=== PATIENT | male | born 1980 | race African-American/Black ===

== ENCOUNTER 2017-06-08 15:12 | Emergency (ER) | payer OTHER ==
[~2017-06-08] VITALS: Ht 170.2 cm; Wt 112.5 kg
[~2017-06-08 15:12] MED LIST: ALBUTEROL0.09 MG/A1 INH; AMLODIPINE10 MG PO; AMOXIL 875 MG875 MG PO; FLEXERIL10 MG PO; HYDROCODONE/ACE1 TA1 PO; HYDRODIURIL 112.5 M1 PO; IBUPROFEN600 M1 PO; MOBIC15 M1 PO; PERCOCET 10-321 EACH PO; PERCOCET 5-3251 EACH PO; PREDNISONE 20MG20 MG PO; PREDNISONE20 M1 PO; TESSALON PERLE100 MG PO; ULTRAM50 M1 PO
[2017-06-08 16:51] LABS: ABSOLUTE BASOPHIL COUNT 0 /CUMM (0.0-0.2); ABSOLUTE EOSINOPHIL COUNT 0 /CUMM (0.0-0.7); ABSOLUTE GRANULOCYTE CT 8.7 /CUMM (1.4-6.5); ABSOLUTE LYMPH COUNT 1.3 /CUMM (1.2-3.4); ABSOLUTE MONOCYTE COUNT 0.4 /CUMM (0.10-0.60); BASOPHIL % 0.4 % (0.0-2.0); EOSINOPHIL % 0.3 % (0-5); HEMATOCRIT 42.7 % (42-52); MEAN CORPUSCULAR HGB 28.5 PG (27.0-31.0); MEAN CORPUSCULAR VOLUME 83.9 FL (80.0-94.0); MEAN PLATELET VOLUME 7.6 FL (7.4-10.4); PLATELET COUNT 338 /CUMM (130-400); RED BLOOD CELL CT 5.08 /CUMM (4.70-6.10); WHITE BLOOD CELL COUNT 10.4 /CUMM (4.8-10.8)
[2017-06-08 16:52] LABS: GRANULOCYTE % 83.1 % (42.2-75.2)
--- NOTE | 2017-06-08 17:08 | ED GI/GU/ABDOMINAL COMPLAINT ---
History of Present Illness General Chief Complaint: Abdominal Pain/Flank Pain Stated Complaint: ABDOMINAL PAIN Source: patient Exam Limitations: no limitations Vital Signs & Intake/Output Vital Signs & Intake/Output Vital Signs Date Time Temp Pulse Resp B/P B/P Pulse O2 O2 Flow FiO2 Mean Ox Delivery Rate 06/08 1839 98.6 88 20 138/92 98 Room Air 06/08 1700 98.1 92 18 142/108 98 Room Air 06/08 1516 98.3 89 20 157/115 97 Room Air Allergies Coded Allergies: NO KNOWN ALLERGIES (11/09/15) Reconcile Medications Amlodipine Besylate (Amlodipine) 10 MG TAB 1 TAB PO DAILY HEART (Reported) Hydrochlorothiazide (Hydrodiuril 12.5 MG Tab) 12.5 MG HTAB 1 CAP PO DAILY HEART (Reported) Ibuprofen 600 MG TABLET 1 TAB PO Q6P PRN PAIN with food Meloxicam (Mobic) 15 MG TABLET 1 TAB PO DAILY PRN PAIN Oxycodone HCl/Acetaminophen (Percocet 10-325 MG Tablet) 1 EACH TABLET 1 TAB PO 1200 PRN PAIN Oxycodone HCl/Acetaminophen (Percocet 5-325 MG Tablet) 1 EACH TABLET 1 TAB PO Q12 PRN pain Prednisone 20 MG TABLET 2 TAB PO DAILY DISC HERNIATION BEGIN MAY 18 2015 Tramadol HCl (Ultram) 50 MG TABLET 1-2 TAB PO Q6P PRN PAIN Triage Note: C/O LEFT SIDED ABDOMINAL PAIN AND UMBILICAL PAIN. STATES PAIN STARTED AN HOUR AGO. +NAUSEA. STATES PAIN IS SHARP IN NATURE Triage Nurses Notes Reviewed? yes Onset: Abrupt Duration: constant Timing: single episode today Quality/Severity: sharpness Severity Numbers: 8 Location: periumbilical Radiation: no radiation Activities at Onset: physical activity HPI: 36-year-old male with a noncontributory past medical history presents to emergency department complaining of periumbilical abdominal pain. Started abruptly after lifting something off the ground. He had a similar occurrence one month ago which resolved spontaneously. States he feels like his belly button is enlarged. He has not had any fever or chills. No nausea or vomiting. No previous abdominal surgeries. Last bowel movement was this morning and normal. (Jacob Pleitez) Past History Travel History Traveled to [place] past 21 day No Medical History Any Pertinent Medical History? see below for history Neurological: NONE EENT: NONE Cardiovascular: hypertension Respiratory: NONE Gastrointestinal: NONE Hepatic: NONE Renal: NONE Musculoskeletal: NONE Psychiatric: NONE Endocrine: NONE Blood Disorders: NONE Cancer(s): NONE FORESTRY SCIENTIST/Reproductive: NONE Surgical History Surgical History: non-contributory Psychosocial History What is your primary language Lao Tobacco Use: Quit >30 days ago ETOH Use: denies use Illicit Drug Use: denies illicit drug use Family History Hx Contributory? No (Jacob Pleitze) Review of Systems Review of Systems Constitutional: Reports: no symptoms. EENTM: Reports: no symptoms. Respiratory: Reports: no symptoms. Cardiovascular: Reports: no symptoms. GI: Reports: see HPI. Genitourinary: Reports: no symptoms. Musculoskeletal: Reports: no symptoms. Skin: Reports: no symptoms. Neurological/Psychological: Reports: no symptoms. Hematologic/Endocrine: Reports: no symptoms. Immunologic/Allergic: Reports: no symptoms. All Other Systems: Reviewed and Negative (Jacob Pleitez) Physical Exam Physical Exam Gastrointestinal: hernia Comments: Well-developed well-nourished person in no acute distress HEENT: Normal EENT exam; PERRL, EOMI, HEAD is atraumatic. moist mucous membranes. Neck: Supple, no lymphadenopathy, normal range of motion without pain or tenderness Back: Nontender, no CVA tenderness. Full range of motion Cardiovascular: Regular rate and rhythms no murmurs rubs or gallops Respiratory: Chest nontender.No respiratory distress. Breath sounds clear to auscultation bilaterally: NO W/R/R Abdomen: Abdomen is soft , periumbilical tenderness with reducible umbilical hernia noted on exam. No rebound or guarding. No mcburneys point tenderness. Extremity: No edema, full range of motion of extremities, Neuro: Alert oriented x3, There were no obvious focal neurologic abnormalities. Skin: No appreciable rash on exposed skin, skin is warm and dry. Psych: Mood and affect is normal, memory and judgment is normal. Core Measures ACS in differential dx? No Sepsis Present: No Sepsis Focused Exam Completed? No (Jacob Pleitez) Progress Differential Diagnosis: appendicitis, bowel obstruction, diverticulitis, hernia, SBO, urinary retention, UTI/pyelo Plan of Care: Orders Procedure Date/time Status LIPASE 06/08 1623 Complete COMPREHENSIVE METABOLIC PANEL 06/08 162 Complete CBC WITHOUT DIFFERENTIAL 06/08 1622 Complete Laboratory Tests 06/08/17 1641: Anion Gap 10, Estimated GFR > 60, BUN/Creatinine Ratio 10.0, Glucose 91, Calcium 9.2, Total Bilirubin 0.6, AST 34, ALT 33, Alkaline Phosphatase 104, Total Protein 7.1, Albumin 4.2, Globulin 2.9, Albumin/Globulin Ratio 1.4, Lipase 55, CBC w Diff NO MAN DIFF REQ, RBC 5.08, MCV 83.9, MCH 28.5, MCHC 34.0, RDW 14.0, MPV 7.6, Gran % 83.1 H, Lymphocytes % 12.1 L, Monocytes % 4.1, Eosinophils % 0.3, Basophils % 0.4, Absolute Granulocytes 8.7 H, Absolute Lymphocytes 1.3, Absolute Monocytes 0.4, Absolute Eosinophils 0, Absolute Basophils 0 Diagnostic Imaging: Viewed by Me: CT Scan. Discussed w/RAD: CT Scan. Radiology Impression: PATIENT: DARCY HOPPER PRESENT AGE: 36 PATIENT ACCOUNT NO: [id number] : 79 LOCATION: [facility] ORDERING PHYSICIAN: Jacob GUILLEN SERVICE DATE: 06/08/17 EXAM TYPE : CAT - CT ABD & PELVIS W/O IV CONTRAS EXAMINATION: CT ABDOMEN AND PELVIS WITHOUT CONTRAST CLINICAL INFORMATION: Reduced umbilical hernia. Still having pain. COMPARISON: None TECHNIQUE: Multidetector volumetric imaging was performed from the superior aspect of the liver through the pubic symphysis. Sagittal and coronal reformatted images were obtained on the technologist's workstation. DLP: 1094.55 mGy-cm FINDINGS: LUNG BASES: The visualized lung bases are unremarkable. LIVER, GALLBLADDER, AND BILIARY TREE: There is a focal coarse calcification in the inferior right lobe of the liver measuring 2.5 cm. No suspicious liver lesion. No intrahepatic bile duct dilatation. The gallbladder is unremarkable with no evidence of radiopaque gallstones, gallbladder wall thickening, or obvious pericholecystic inflammatory changes. PANCREAS: Unremarkable. SPLEEN: Unremarkable. ADRENAL GLANDS: Unremarkable. KIDNEYS AND URETERS: There is a 2 mm nonobstructive stone in lower pole of left kidney. No stone in the right kidney. There is no hydronephrosis. There is no ureteral stone. BLADDER: Unremarkable. GASTROINTESTINAL TRACT: There is diverticulosis throughout the colon. No diverticulitis. No acute change of the bowel. No bowel obstruction. No bowel wall thickening or edema. The appendix is normal. The small bowel loops are unremarkable. ABDOMINAL WALL: There is a fat-containing umbilical hernia. The defect at the wall measures about 1.5 cm. The herniated fat pocket measures 3.4 x 3 x 3.4 cm. There is no edema or fluid collection. There is no bowel herniated. There is bilateral fat-containing inguinal hernias each measuring about 2.3 cm transverse. LYMPH NODES: Normal. VASCULAR: Unremarkable. PELVIC VISCERA: Prostate measures 3.8 cm transverse. OSSEOUS STRUCTURES: Unremarkable. IMPRESSION: 1. There is a fat-containing umbilical hernia. There is no edema or inflammation. No bowel involvement. There are small bilateral fat-containing inguinal hernias as well. 2. Diverticulosis of colon without acute change of bowel. 3. Coarse calcification in right lobe of liver. 4. 2 mm nonobstructive stone lower pole of left kidney. DICTATED BY: Hakeem Matute MD DATE/TIME DICTATED :06/08/171721 FELT FINISHING SUPERVISOR:FROILAN DATE/TIME TRANSCRIBED:06/08/171721 CONFIDENTIAL, DO NOT COPY WITHOUT APPROPRIATE AUTHORIZATION. < Electronically signed in Other Vendor System> SIGNED BY: Hakeem Matute MD [id number] Initial ED EKG: none Comments: Pt made aware of results on CT scan. His pain is improved since hernia reduced. He has no N/V. No evidence of acute surgical abdomen. Will have him follow up with surgery. (Nura GUILLEN,Jacob) Departure Departure Disposition: HOME OR SELF CARE Condition: Stable Clinical Impression Primary Impression: Umbilical hernia Secondary Impressions: Bilateral inguinal hernia Referrals: Alessandra Haynes APRN (PCP/Family) Brittnee COELHO,Wilfredo N. Additional Instructions: CT scan shows umbilical hernia and bilateral inguinal hernias. Take tylenol or motrin for pain. Follow up with surgery. Return immediately with any fevers, chills, nausea, vomiting, or any new/worsening symptoms. Follow-up with your primary care physician this week. Contact them to let them know you were here in the emergency room. Return to the emergency room at any time sooner if you have worsening of your symptoms or any other concerns. Please note that there might be incidental findings in your evaluation that are unrelated to the current emergency department visit. Please notify your primary care doctor about this emergency department visit in order to obtain and review all of the testing performed so that these incidental findings can be monitored as needed. If you were prescribed a narcotic use caution as this medication is highly addictive and may make you feel lightheaded,dizzy or drowsy. These can make you constipated. Use for breakthrough pain only. No driving, drinking alcohol or operating machinary when taking. If you had an x-ray performed, please understand that some fractures may not be seen on the initial set of x-rays. If your symptoms persist you might need a repeat set of x-rays to check for such a fracture. If you had a laceration evaluated, please understand that foreign bodies such as glass or wood may not be visible to the naked eye or on plain x-rays. If the wound becomes red, swollen, increasingly more painful or if there is any drainage from the wound, please have it reevaluated by a physician for the possibility of a retained foreign body. Departure Forms: Customer Survey General Discharge Information (Jacob Pleitez) PA/SEMIAUTOMATIC STITCHER OPERATOR Co-Sign Statement Statement: ED Attending supervision documentation- I saw and evaluated the patient. I have also reviewed all the pertinent lab results and diagnostic results. I agree with the findings and the plan of care as documented in the PA's/SEMIAUTOMATIC STITCHER OPERATOR's documentation. x I have reviewed the ED Record and agree with the PA's/SEMIAUTOMATIC STITCHER OPERATOR's documentation. [] Additions or exceptions (if any) to the PAs/SEMIAUTOMATIC STITCHER OPERATOR's note and plan are summarized below: [] (Og COELHO,Андрей)
--- NOTE | 2017-06-08 17:41 | CT SCAN REPORT ---
EXAMINATION: CT ABDOMEN AND PELVIS WITHOUT CONTRAST CLINICAL INFORMATION: Reduced umbilical hernia. Still having pain. COMPARISON: None TECHNIQUE: Multidetector volumetric imaging was performed from the superior aspect of the liver through the pubic symphysis. Sagittal and coronal reformatted images were obtained on the technologist's workstation. DLP: 1094.55 mGy-cm FINDINGS: LUNG BASES: The visualized lung bases are unremarkable. LIVER, GALLBLADDER, AND BILIARY TREE: There is a focal coarse calcification in the inferior right lobe of the liver measuring 2.5 cm. No suspicious liver lesion. No intrahepatic bile duct dilatation. The gallbladder is unremarkable with no evidence of radiopaque gallstones, gallbladder wall thickening, or obvious pericholecystic inflammatory changes. PANCREAS: Unremarkable. SPLEEN: Unremarkable. ADRENAL GLANDS: Unremarkable. KIDNEYS AND URETERS: There is a 2 mm nonobstructive stone in lower pole of left kidney. No stone in the right kidney. There is no hydronephrosis. There is no ureteral stone. BLADDER: Unremarkable. GASTROINTESTINAL TRACT: There is diverticulosis throughout the colon. No diverticulitis. No acute change of the bowel. No bowel obstruction. No bowel wall thickening or edema. The appendix is normal. The small bowel loops are unremarkable. ABDOMINAL WALL: There is a fat-containing umbilical hernia. The defect at the wall measures about 1.5 cm. The herniated fat pocket measures 3.4 x 3 x 3.4 cm. There is no edema or fluid collection. There is no bowel herniated. There is bilateral fat-containing inguinal hernias each measuring about 2.3 cm transverse. LYMPH NODES: Normal. VASCULAR: Unremarkable. PELVIC VISCERA: Prostate measures 3.8 cm transverse. OSSEOUS STRUCTURES: Unremarkable. IMPRESSION: 1. There is a fat-containing umbilical hernia. There is no edema or inflammation. No bowel involvement. There are small bilateral fat-containing inguinal hernias as well. 2. Diverticulosis of colon without acute change of bowel. 3. Coarse calcification in right lobe of liver. 4. 2 mm nonobstructive stone lower pole of left kidney.
[2017-06-08 18:39] VITALS: BP 138/92
== END 2017-06-08 18:42 ==
LOC: ERH 15:12
PROVIDERS: Physician Assistant Medical
DX: K42.9 Umbilical hernia without obstruction or gangrene (principal); K40.20 Bilateral inguinal hernia, without obstruction or gangrene, not specified as recurrent
CPT/HCPCS: 74176

== ENCOUNTER → 2017-09-15 | Day surgery (SDC) | payer OTHER ==
[2007-02-19 19:56] VITALS: BP 116/87
[~2017-09-15] MED LIST changes: +AMLODIPINE BESY10 M1 PO; +CHLORTHALIDONE25 M1 PO; +LOSARTAN POTASS25 M1 PO
[2017-09-15 06:44] LABS: ABSOLUTE BASOPHIL COUNT 0.1 /CUMM (0.0-0.2); ABSOLUTE EOSINOPHIL COUNT 0.2 /CUMM (0.0-0.7); ABSOLUTE GRANULOCYTE CT 5.8 /CUMM (1.4-6.5); ABSOLUTE LYMPH COUNT 2.5 /CUMM (1.2-3.4); ABSOLUTE MONOCYTE COUNT 0.7 /CUMM (0.10-0.60); BASOPHIL % 0.5 % (0.0-2.0); EOSINOPHIL % 2.4 % (0-5); GRANULOCYTE % 62.4 % (42.2-75.2); HEMATOCRIT 43.4 % (42-52); MEAN CORPUSCULAR HGB CONC 33.1 G/DL (33.0-37.0); MEAN CORPUSCULAR VOLUME 84.6 FL (80.0-94.0); MEAN PLATELET VOLUME 7.4 FL (7.4-10.4); PLATELET COUNT 315 /CUMM (130-400); RBC DISTRIBUTION WIDTH 13.9 % (11.5-14.5); RED BLOOD CELL CT 5.13 /CUMM (4.70-6.10); WHITE BLOOD CELL COUNT 9.3 /CUMM (4.8-10.8)
--- NOTE | 2017-09-16 14:26 | Operative Report ---
Operative/Inv Procedure Report Surgery Date: 09/15/17 Name of Procedure: Robotic laparoscopic 12 cm mesh repair of incarcerated umbilical hernia Pre-Operative Diagnosis: Incarcerated umbilical hernia Post-Operative Diagnosis: Same Estimated Blood Loss: scant Surgeon/Voice And Data Technician: Brittnee COELHO,Wilfredo GUILLEN Anesthesia: general endotracheal tube Operative/Procedure Note Note: Patient was positioned supine on the table. After successful induction of general anesthesia the abdomen was clipped prepped and draped in usual sterile fashion. The abdominal skin is marked to guide where the mesh will lay, centered under the defect, and where the 3 8 mm robotic trochars will be positioned, centered in the left anterior axillary line between the ribs and the iliac crest. After injection of local anesthetic at a spot in the mid to lateral left subcostal area, a horizontal 1 cm incision was made with a 15 blade. Using the plastic pointed-tipped translucent 8 mm with a metal robotic trocar and the camera inserted, the abdominal wall was traversed through this incision, watching on the screen, as the trocar passes through the layers, alternating colors, yellow fat white fascia red muscle, until the tip just seems to floyd the inner thin peritoneal layer. At that point, I stop pushing and check if it's open by turning on the gas. If the belly insufflates then you know you can advance that large trocar into an empty space more directly without injuring the viscera. The gas was turned on to 15 mm. At this point you can see the umbilical ventral defect, the incarcerated fat and omentum was reduced. Next the 2 remaining 8 mm robotic trochars are placed one in the mid abdomen axillary line as mentioned in one lower down above the iliac crest. The robot then is brought to the patient attached docked and targeted. Then on the near side a peritoneal flap is started by scoring it measuring roughly 6 cm from the defect towards the left first scoring the peritoneum in a vertical line and then completing the incision with cautery keeping the flap thin paying particular care to not include the transversalis fascia or even the rectus sheath posterior leaf, and continuing that flap across to the right past the defect also on that side at least 6 cm, the defect was approximately 2. This defect was then closed with a running continuous 0 V lock, absorbable. Also a small rent in the flap itself was repaired with 3-0 Vicryl. We then chose a Velcro type of mesh not coated sized it to 12 cm marked the rough surface rolled up like a scroll and stuffed down one of the trochars centered it over the defect on the near side there was one part that was growing a little bit we tacked that down into place with interrupted 3-0 Vicryl suture otherwise the mesh laid nicely and flat we had stopped corners to prevent curling it fit well within the flap that we had created and then we closed the flap that vertical line on the near side with a running 2-0 V lock suture. Next we checked for hemostasis and then undocked letting the gas escape pulling out the instruments and the trochars these 3 incisions were small there was no fascial closure needed and we then closed the skin with subcuticular 4-0 Monocryl, and then Mastisol, Steri-Strips and Band- Aids. Overall estimated blood loss was minimal, lap and sponge counts were correct, wound expectancy was clean, IV fluids crystalloid, complications none, patient tolerated the procedure well, did not significantly parsons during extubation and was returned to the recovery room in satisfactory condition.
== END ==
LOC: STS 02:31
PROVIDERS: Surgery
DX: K42.0 Umbilical hernia with obstruction, without gangrene (principal); I10 Essential (primary) hypertension; Z87.891 Personal history of nicotine dependence
CPT/HCPCS: 49653; S2900; 36415; 93005; 93010; C1781; J0690; J2250; J3490